=== PATIENT | female | born 1970 | race Caucasian/White ===

== ENCOUNTER → 2016-05-29 | Outpatient (CLI) | payer OTHER | END | disposition home or self-care (01) | DX: Z53.9 Procedure and treatment not carried out, unspecified reason (principal) ==

== ENCOUNTER → 2017-04-09 | Outpatient (CLI) | payer OTHER ==
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
== END | disposition home or self-care (01) ==
LOC: RADMRIMAIN 08:21
PROVIDERS: ATTEND Orthopaedic Surgery
DX: S83.242A Other tear of medial meniscus, current injury, left knee, initial encounter (principal); M25.862 Other specified joint disorders, left knee; M94.8X6 Other specified disorders of cartilage, lower leg

== ENCOUNTER → 2017-05-24 | Outpatient (CLI) | payer OTHER | END | disposition home or self-care (01) | LOC: LABWHC1 15:37 | PROVIDERS: ATTEND Internal Medicine Interventional Cardiology | DX: E05.90 Thyrotoxicosis, unspecified without thyrotoxic crisis or storm (principal) | CPT/HCPCS: 36415; 84443 ==

== ENCOUNTER → 2017-07-04 | Outpatient (CLI) | payer OTHER ==
[2017-07-04 13:12] LABS: Basophils # (A) 0.1 k/uL (0-0.2); Basophils % (A) 1 %; Eosinophils # (A) 0.2 k/uL (0-0.7); Eosinophils % (A) 2 %; HCT 35.9 % (34.0-46.0); HGB 12.2 gm/dL (11.4-16.0); Lymphocytes # (A) 2.7 k/uL (1.0-4.8); Lymphocytes % (A) 26 %; MCH 27.9 pg (25.0-35.0); MCHC 34.1 g/dL (31.0-37.0); MCV 81.9 fL (80.0-100.0); Mean Platelet Volume 6.7; Monocytes # (A) 0.5 k/uL (0-1.0); Monocytes % (A) 5 %; Neutrophils # (A) 6.5 k/uL (1.3-7.7); Neutrophils % (A) 63 %; Platelet Count 368 k/uL (150-450); RBC 4.38 m/uL (3.80-5.40); RDW 12.6 % (11.5-15.5); WBC 10.3 k/uL (3.8-10.6)
[2017-07-04 13:23] LABS: Potassium 4.9 mmol/L (3.5-5.1)
== END | disposition home or self-care (01) ==
LOC: LABPAT 12:35
PROVIDERS: ATTEND Orthopaedic Surgery
DX: Z01.812 Encounter for preprocedural laboratory examination (principal); M23.92 Unspecified internal derangement of left knee
CPT/HCPCS: 36415; 80051; 85025

== ENCOUNTER → 2017-07-23 | Outpatient (CLI) | payer OTHER ==
--- NOTE | 2017-07-23 11:59 | MR ---
EXAMINATION TYPE: MR lumbar spine wo con DATE OF EXAM: 07/23/2017 COMPARISON: Outside MRI lumbar spine September 05, 2015. HISTORY: Low back pain per order. Pain into bilateral lower extremities per patient. TECHNIQUE: Multiplanar, multisequence imaging of the lumbar spine is performed without IV contrast. FINDINGS: Sagittal images of the lumbar spine show vertebral body heights and alignment to appear sat isfactory. Small Schmorl node superior L3 endplate is redemonstrated. Multilevel disc desiccation is redemonstrated. Disc space heights are maintained. Posterior disc herniation L4-L5 level is again se en. There is increased signal posteriorly consistent with annular tear redemonstrated. The conus medu llaris is remains slightly high in position ending at mid T12 level. No abnormal signal is present. N o suspicious clumping of lumbosacral nerve roots is seen. The bone marrow signal intensity is within normal limits. Axial images show the T12-L1, L1-L2, L2-L3, and L3-L4 levels all to appear within normal limits. Axial images at L4-L5 level show mild facet degenerative changes bilaterally with small central disc protrusion but spinal canal is preserved and bilateral neural foramina are patent. Axial images at L5-S1 level show mild facet degenerative changes otherwise are felt unremarkable. No suspicious retroperitoneal findings are present. IMPRESSION: Stable degenerative changes most prominent L4-L5 level as detailed above.
== END | disposition home or self-care (01) ==
LOC: RADMRIMAIN 09:28
PROVIDERS: ATTEND Psychiatry & Neurology Neurology
DX: M47.817 Spondylosis without myelopathy or radiculopathy, lumbosacral region (principal)
CPT/HCPCS: 72148

== ENCOUNTER → 2017-12-17 | Outpatient (CLI) | payer OTHER ==
[2017-12-17 13:05] LABS: Anion Gap 11 mmol/L; Blood Urea Nitrogen 15 mg/dL (7-17); Carbon Dioxide 22 mmol/L (22-30); Chloride 107 mmol/L (98-107); HCT 37.9 % (34.0-46.0); HGB 12.5 gm/dL (11.4-16.0); MCH 27.8 pg (25.0-35.0); MCV 84.2 fL (80.0-100.0); Mean Platelet Volume 6.3; Platelet Count 288 k/uL (150-450); Potassium 5.1 mmol/L (3.5-5.1); RDW 13.6 % (11.5-15.5); Sodium 140 mmol/L (137-145); WBC 9.5 k/uL (3.8-10.6)
== END | disposition home or self-care (01) ==
LOC: LABPAT 12:15
PROVIDERS: ATTEND Internal Medicine Interventional Cardiology
DX: Z01.812 Encounter for preprocedural laboratory examination (principal); E78.1 Pure hyperglyceridemia; R07.9 Chest pain, unspecified
CPT/HCPCS: 36415; 80051; 82565; 84520; 85027

== ENCOUNTER → 2018-03-24 | Outpatient (CLI) | payer OTHER | END | disposition home or self-care (01) | LOC: LABWHC1 07:04 | PROVIDERS: ATTEND Psychiatry & Neurology Neurology | DX: Z51.81 Encounter for therapeutic drug level monitoring (principal) | CPT/HCPCS: 36415; 82565; 84520 ==

== ENCOUNTER → 2018-07-11 | Outpatient (CLI) | payer OTHER | END | disposition home or self-care (01) | LOC: LABWHC1 09:45 | PROVIDERS: ATTEND Internal Medicine Interventional Cardiology | DX: E78.2 Mixed hyperlipidemia (principal) | CPT/HCPCS: 36415; 80061; 84450; 84460 ==

== ENCOUNTER 2018-08-27 06:19 | Day surgery (SDC) | payer OTHER ==
[2018-08-25 10:51] VITALS: BMI 28.7
--- NOTE | 2018-08-26 13:34 | HP ---
HISTORY AND PHYSICAL Surgery is 08/27/2018. Marcy Alcaraz is a 48-year-old patient seen with progressive right shoulder pain. Treatment options were discussed with her. She elected to proceed with arthroscopy. Consent regarding procedure was obtained. PAST MEDICAL HISTORY: Her past medical history is cga-sryzcem-rxvyrynwn diabetes, hypertension, hyperlipidemia, gastroesophageal reflux disease. PAST SURGICAL HISTORY: Carpal tunnel surgery, knee arthroscopy. DAILY MEDICATIONS: 1. Atorvastatin. 2. Buspirone. 3. . 4. Glipizide. 5. Januvia. 6. Lisinopril. 7. Metformin. 8. Omeprazole. ALLERGIES: None. SOCIAL HISTORY: She denies current tobacco use. PHYSICAL EXAMINATION: Physical evaluation of the right shoulder: Flexion 170 degrees, abduction 170 degrees, external rotation 70 degrees with weakness and pain. There is tenderness along the anterolateral acromion and rotator cuff insertion site. Impingement sign is positive at 90 degrees. Her distal neurovascular exam is intact. Radiographs of the right shoulder revealed acromioclavicular joint osteoarthritis. An MRI of the right shoulder revealed rotator cuff tear, acromioclavicular joint osteoarthritis and partial long head biceps tendon tear. IMPRESSION: 1. Right shoulder impingement with rotator cuff tear. 2. Right shoulder partial long head biceps tendon tear. 3. Right shoulder acromioclavicular joint osteoarthritis. PLAN: Right shoulder arthroscopy, subacromial decompression, possible arthroscopic rotator cuff repair, possible Dolores procedure and debridement. MMODL / IJN: [id number] /
[2018-08-27] MEDS ORDERED: SCOPOLAMINE 1.5MG/72HR PATCH TRANSDERM ONE (06:35)
[2018-08-27] MEDS ORDERED: DEXAMETHASONE SOD PHOSPHATE 10 MG/ML 1 ML VIAL IV ONE (06:35)
[2018-08-27] MEDS ORDERED: MIDAZOLAM 2 MG/2 ML VIAL IV PRN (06:35)
[2018-08-27] MEDS ORDERED: LACTATED RINGERS 1,000 ML IV SCH (06:35)
[2018-08-27] MEDS ORDERED: ONDANSETRON 4 MG/2 ML VIAL IVP ONE (06:35)
[2018-08-27] MEDS ORDERED: HYDROmorphone 0.5 MG/0.5 ML SYRINGE IVP PRN (06:35)
[2018-08-27] MEDS ORDERED: LIDOCAINE 1% 20 ML VIAL (10MG/ML) FOR IV START INTRADERMA ONE (07:00)
[2018-08-27 07:21] LABS: Glucose,Whole Blood 136 mg/dL (75-99)
[2018-08-27] MEDS ORDERED: METOCLOPRAMIDE 5 MG/ML 2 ML VIAL IVP ONE (07:40)
[2018-08-27] MEDS ORDERED: FAMOTIDINE 20 MG/2 ML VIAL IV ONE (07:40)
[2018-08-27] MEDS ORDERED: fentaNYL (PF) 50 MCG/ML 2 ML AMP ONE (07:55)
[2018-08-27] MEDS ORDERED: PHENYLEPHRINE-0.9% NACL SYG 1 MG/10 ML SYRINGE ONE (07:55)
[2018-08-27] MEDS ORDERED: ROPIVACAINE 5 MG/ML 30 ML VIAL ONE (07:55)
[2018-08-27] MEDS ORDERED: PROPOFOL 10 MG/ML 20 ML VIAL IV ONE (07:55)
[2018-08-27] MEDS ORDERED: LIDOCAINE 1% INJ 10MG/ML (20 ML MDV) ONE (07:55)
[2018-08-27] MEDS ORDERED: MIDAZOLAM 2 MG/2 ML VIAL ONE (07:55)
[2018-08-27] MEDS ORDERED: SUCCINYLCHOLINE CHLORIDE 100 MG/5 ML SYR IV ONE (07:55)
[2018-08-27] MEDS ORDERED: LACTATED RINGERS 1,000 ML IV ONE ×2 (08:53)
[2018-08-27 09:29] VITALS: TEMP 97.6
--- NOTE | 2018-08-27 09:32 | P.OP ---
Date of Procedure: 08/27/18 Preoperative Diagnosis: Right shoulder impingement Postoperative Diagnosis: 1. Right shoulder rotator cuff tear 2. Right shoulder impingement 3. Right shoulder partial long head biceps tendon tear 4. Right shoulder superficial labral tear Procedure(s) Performed: 1. Right shoulder arthroscopic rotator cuff repair 2. Right shoulder arthroscopic subacromial decompression 3. Right shoulder arthroscopic biceps tenotomy 4. Right shoulder arthroscopic debridement labral tear Implants: 14.75 Arthrex swivel lock anchor Anesthesia: GETA, regional (Interscalene block) Surgeon: Steve Vernon Habilitation Specialist #1: Jaspal Winchester Estimated Blood Loss (ml): 5 Pathology: none sent Condition: stable Disposition: PACU Indications for Procedure: 48-year-old patient seen with progressive right shoulder pain. After treatment options were discussed, she elected to proceed with arthroscopy. Operative Findings: See description of procedure Description of Procedure: Patient underwent an interscalene block by department of anesthesia for postoperative pain management. The patient was then taken to the operative suite. The patient underwent a general anesthetic by the department of anesthesia. The patient was placed into a lateral position and secured. There was appropriate padding of the bony prominence. Right shoulder was then prepped and draped in normal sterile orthopedic fashion. We placed the extremity in 10 pounds of longitudinal traction. A posterior incision was now made for a posterior working portal site. The trocar and cannula were inserted into the glenohumeral joint. Arthroscopy was initiated. Spinal needle was now inserted anteriorly, to ascertain the anterior working portal site. An incision was now made in that area, a trocar was inserted followed by a probe. There was partial tearing long head biceps tendon. There were grade 2/3 chondral malacia changes at the inferior aspect of the glenoid. There was some superficial tearing of the superior labrum. I performed an arthroscopic biceps tenotomy. I debrided the superficial labral tears getting down to stable tissue. The residual labrum was stable. Instruments now removed from the glenohumeral joint. Utilizing the posterior working portal site, the trocar and cannula were inserted into the subacromial space. Arthroscopy initiated. I made an incision 2 fingerbreadths lateral to the acromion. I introduced my trocar followed by my ArthroCare ablator. I now began ablating thick subacromial bursal tissue, which exposed the undersurface of the anterior acromion. There was diminished subacromial space. There was a very prominent anterior acromion. A motorized bur was introduced and a subacromial decompression was performed. I also excised some osteophytes off the inferior aspect of the distal clavicle. The AC joint was visualized and noted to be mildly arthritic. I turned my attention to the rotator cuff. There was full-thickness perforation noted along the distal supraspinatus area. I debrided the margins getting down to stable tendon tissue. The tear/defect measured approximately 11.5 cm. It was freely mobile over the footprint. I abraded the footprint with a motorized bur. With the assistance of Jorge Alberto MCGINNIS passed 2 everted mattress sutures through good bites of rotator cuff tendon. We now punched out hole for anchor insertion. While I introduced the anchors into our pre-partial Jorge Alberto MCGINNIS the sutures appropriate. We now introduced anchor compressing the tendon along the footprint. Residual suture limbs were clipped. We had good compression of the tendon along the entire footprint. I injected 1 mL Renue intra-articular. Instruments now removed from the portal sites. All portal sites were approximated with nylon suture. Sterile dressings were applied followed by a shoulder sling. Jaspal MCGINNIS assisted in this complex case. The patient was awakened, transferred to a bed, and taken to recovery in stable condition.
[2018-08-27 10:24] VITALS: RESP 18
[2018-08-27 10:49] VITALS: BP 108/72; PULSE 84
--- NOTE | 2018-08-27 14:46 | P.ONQ ---
Anesthesiology Proc Note - PNB - Peripheral Nerve Block Performed Right Interscalene Single Time Out Performed: Yes (0735) Procedure Start Time: 07:35 Procedure Stop Time: :45 Indication: Acute Post-Operative Pain, Dx/Pain Location (Right Shoulder Pain), Requested by physician Sedation Type: Sedate with meaningful contact maintained Preparation: Sterile Prep Position: Supine Catheter: None Needle Types: ToPorous Powery Needle Size: 50mm (2") Needle Gauge: 21 Technique: Ultrasound Injectate: 0.5% Ropivacaine (see comment for volume) (20ml) Blood Aspirated: No Pain Paresthesia on Injection Noted: No Resistance on Injection: Normal Events: Uneventful and Well Tolerated
== END 2018-08-27 10:55 | disposition home or self-care (01) ==
LOC: OR 06:19
PROVIDERS: ATTEND Orthopaedic Surgery
DX: M75.101 Unspecified rotator cuff tear or rupture of right shoulder, not specified as traumatic (principal); M75.41 Impingement syndrome of right shoulder; S46.111A Strain of muscle, fascia and tendon of long head of biceps, right arm, initial encounter; S43.431A Superior glenoid labrum lesion of right shoulder, initial encounter; X58.XXXA Exposure to other specified factors, initial encounter; M25.711 Osteophyte, right shoulder; E11.9 Type 2 diabetes mellitus without complications; I10 Essential (primary) hypertension; E78.5 Hyperlipidemia, unspecified; K21.9 Gastro-esophageal reflux disease without esophagitis; E55.9 Vitamin D deficiency, unspecified; F41.9 Anxiety disorder, unspecified; F32.9 Major depressive disorder, single episode, unspecified; Z87.891 Personal history of nicotine dependence; Z87.442 Personal history of urinary calculi; G89.4 Chronic pain syndrome; Z83.3 Family history of diabetes mellitus; Z82.3 Family history of stroke; M17.10 Unilateral primary osteoarthritis, unspecified knee; Z79.84 Long term (current) use of oral hypoglycemic drugs; Z79.899 Other long term (current) drug therapy; Z79.82 Long term (current) use of aspirin; Z79.891 Long term (current) use of opiate analgesic; Z91.048 Other nonmedicinal substance allergy status
CPT/HCPCS: 64415; 81025; 29826; 29827; C1713 ×3; C1765; J2250; J1100; J2765; J2405; J0690; J2001; J3010; J2795; J2370; J0330; J2704

== ENCOUNTER → 2019-06-24 | Outpatient (CLI) | payer OTHER ==
--- NOTE | 2019-06-25 07:38 | US ---
EXAMINATION TYPE: US transvaginal DATE OF EXAM: 06/24/2019 COMPARISON: NONE CLINICAL HISTORY: N80.9 Endometriosis. Hx Endometriosis. IUD x 5 years. TECHNIQUE: Transvaginal (TV). Date of LMP: 06/12/2019, EXAM MEASUREMENTS: Uterus: 8.0 x 4.6 x 4.0 cm Endometrial Stripe: 0.4 cm Right Ovary: 1.5 x 1.3 x 0.9 cm Left Ovary: 2.2 x 1.4 x 1.2 cm 1. Uterus: Anteverted Heterogenous. Scattered hypoechoic myometrial lesions are seen. The largest on the right measures 1.5 x 1.5 x 1.3 and the largest on the left measures 0.8 x 1.0 x 0.8 cm. 2. Endometrium: Central IUD visualized. Oval hypoechoic 6 mm avascular area in the endometrium toward s the uterine fundus such as on image 9/56 demonstrates marked increased through transmission and the refore is likely fluid. No vascular stalk is seen leading to this abnormality. 3. Right Ovary: wnl 4. Left Ovary: wnl 5. Bilateral Adnexa: wnl 6. Posterior cul-de-sac: no free fluid Cervix- Fluid seen at external os. Multiple nabothian cysts. Probable complex nabothian cyst with int ernal echoes = 0.9 x 0.9 x 0.5 cm IMPRESSION: 1. Heterogenous myometrium with multiple myometrial lesions, likely leiomyomas measuring up to 1.5 cm . 2. Oval avascular area in the endometrium towards the uterine fundus that is favored to represent a s mall amount of fluid however short-term follow-up versus direct visualization could also be considere d to exclude polyp. 3. Centrally placed intrauterine device. 4. Complex probable nabothian cysts within the cervix measuring up to 0.9 cm.
== END | disposition home or self-care (01) ==
LOC: RADUSWWP 16:01
PROVIDERS: ATTEND Obstetrics & Gynecology
DX: N85.9 Noninflammatory disorder of uterus, unspecified (principal); Z97.5 Presence of (intrauterine) contraceptive device
CPT/HCPCS: 76830

== ENCOUNTER → 2019-12-30 | Outpatient (CLI) | payer OTHER ==
[2019-12-30 21:44] LABS: Total Protein,CSF 34 mg/dL (12-60)
[2019-12-30 22:31] LABS: Appearance,CSF Clear; CSF Tube Number 4; Nucleated Cells, CSF 0 u/L (0-5); Red Blood Cell,CSF 0 u/L (0-10)
== END | disposition home or self-care (01) ==
LOC: LABWHC1 07:47
PROVIDERS: ATTEND Physician Assistant
DX: R90.82 White matter disease, unspecified (principal)
CPT/HCPCS: 36415; 82040; 82042; 82784; 83873; 83916; 84157; 87801; 89050

== ENCOUNTER → 2020-11-29 | Outpatient (CLI) | payer MEDICARE, OTHER ==
--- NOTE | 2020-11-29 14:26 | CT ---
EXAMINATION TYPE: CT brain wo con DATE OF EXAM: 11/29/2020 COMPARISON: Dizziness HISTORY: Falling, dizziness CT DLP: 1171 mGycm Automated exposure control for dose reduction was used. FINDINGS: Mild generalized degenerative change. Low-attenuation the white matter is nonspecific but most typica l remote microvascular ischemia. Calvarium intact. Sinuses and mastoid air cells are clear. Orbits are submitted. Craniocervical junction maintained. Se lla turcica has normal appearance. IMPRESSION: MILD DEGENERATIVE CHANGE WITH NO ACUTE HEMORRHAGE OR MASS EFFECT. CORRELATE WITH MRI CLINICALLY WA RRANTED.
== END | disposition home or self-care (01) ==
LOC: RADCTMAIN 13:11
PROVIDERS: ATTEND Physician Assistant
DX: G31.9 Degenerative disease of nervous system, unspecified (principal); W19.XXXA Unspecified fall, initial encounter
CPT/HCPCS: 70450

== ENCOUNTER 2023-08-21 12:00 | Day surgery (SDC) | payer MEDICARE, OTHER ==
[2023-08-16 14:01] VITALS: BMI 23.0
--- NOTE | 2023-08-20 08:43 | P.HPOR ---
History of Present Illness H&P Date: 08/20/23 Subjective: This is a 53 year old female that presents today for initial evaluation regarding a several year history of progressively worsening left base of the thumb pain and associated numbness and tingling in the thumb, index and middle finger. Over the last several years she has had over 4 thumb CMC steroid injections performed by [facility]. She notes only temporary improvement of her symptoms which returns several months after the injection. She also has a history of a left carpal tunnel release performed early 1999. She got temporary relief from her numbness and tingling but is now returned and she has noticed daily worsening of her numbness and tingling in the thumb, index and middle finger. Physical Examination: LUE: AIN/PIN/Radial/Ulnar/Median motor intact. Radial/Ulnar/Median SILT. 2+/4 Radial/Ulnar pulses palpated. 5/5 APB, 5/5 FDI. Negative Finkelsteins, positive CMC grind, positive Durkan's compression. Previous carpal tunnel surgery scar present. Imaging: X-Rays of the left hand 3V taken in office today demonstrate moderate/severe thumb CMC arthritis. Impression: 1.) Left thumb CMC arthritis 2.) Left recurrent carpal tunnel syndrome Plan: Diagnosis and treatment options were discussed with the patient. She has failed conservative treatment for her left thumb CMC arthritis and has signs of recurrent carpal tunnel syndrome. She elects to go forward with a left thumb CMC joint arthroplasty and a left revision open carpal tunnel release. Risks and benefits of surgery including bleeding, infection, damage to surrounding tissue, need for further surgery, residual numbness were discussed and the patient wished to go forward with surgery. The patient was agreeable with this plan. CC: Dr. Carlos Alberto Ho DO Orthopedic Hand/Upper Extremity Surgeon Past Medical History Past Medical History: Chest Pain / Angina, Diabetes Mellitus, GERD/Reflux, Hyp erlipidemia, Hypertension, Myocardial Infarction ([place]), Osteoarthritis (OA), Syncope Additional Past Medical History / Comment(s): "I'v been cleared from diabetes now."" My AIc is 4.9 now." "I passed out from medications" "That's what my heart doctor said." Migraines. Last Myocardial Infarction Date:: 04/2018 History of Any Multi-Drug Resistant Organisms: MRSA Date of last positivie culture/infection: 2013 MDRO Source:: FOREHEAD, BILAT ARMS AND LEGS FROM SPIDER BITES Past Surgical History: Heart Catheterization, Hernia Repair, Orthopedic Surgery, Tubal Ligation Additional Past Surgical History / Comment(s): LT KNEE SCOPE, BILAT CTR, COLONOSCOPY, rt shoulder repair and rt arm. Cardiac cath with [place] 2019. Past Anesthesia/Blood Transfusion Reactions: No Reported Reaction, Motion Sickness Additional Past Anesthesia/Blood Transfusion Reaction / Comment(s): No hx of blood transfusion. Smoking Status: Former smoker - Past Family History Mother Family Medical History: Deep Vein Thrombosis (DVT) Sister(s) Family Medical History: Cancer Medications and Allergies Home Medications Medication Instructions Recorded Confirmed Type Atorvastatin [Lipitor] 40 mg PO HS 07/18/17 08/16/23 History Butalb/APAP/Caff 50-325-40Mg 1 each PO Q6H PRN 07/18/17 08/16/23 History [Fioricet 50-325-40] Cholecalciferol [Vitamin D3] 1,000 unit PO BID 07/18/17 08/16/23 History Fluticasone Nasal [place] [Flonase 2 spr EA NOSTRIL DAILY PRN 07/18/17 08/16/23 History Nasal [place]] HYDROcodone/APAP 7.5-325MG [[place] 1 tab PO TID 07/18/17 08/16/23 History 7.5-325] Levomilnacipran HCl [Fetzima] 80 mg PO QAM 07/18/17 08/16/23 History Omeprazole 20 mg PO DAILY PRN 07/18/17 08/16/23 History busPIRone HCL 15 mg PO BID 07/18/17 08/16/23 History Cinnamon Bark [Cinnamon] 500 mg PO HS 08/25/18 08/16/23 History Metoprolol Tartrate [Lopressor] 50 mg PO BID 08/25/18 08/16/23 History Aspirin EC [Ecotrin Low Dose] 81 mg PO HS 08/16/23 08/16/23 History Atogepant [Qulipta] 60 mg PO QAM 08/16/23 08/16/23 History Brexpiprazole [Rexulti] 1 mg PO HS 08/16/23 08/16/23 History Famotidine [Pepcid] 40 mg PO HS 08/16/23 08/16/23 History Fish Oil (Unknown Dose) 1 dose PO QAM 08/16/23 08/16/23 History Fremanezumab-Vfrm [Ajovy 1 dose SQ Q30D 08/16/23 08/16/23 History Autoinjector] Multivitamins, Thera [Multivitamin 1 tab PO QAM 08/16/23 08/16/23 History (formulary)] Pregabalin [Lyrica] 50 mg PO TID 08/16/23 08/16/23 History Tirzepatide [Mounjaro] 2.5 mg SQ WEEKLY 08/16/23 08/16/23 History Allergies Allergy/AdvReac Type Severity Reaction Status Date / Time "Antibiotic" Allergy "unknown" Uncoded 08/16/23 13:38 Physical Examination Osteopathic Statement: *. No significant issues noted on an osteopathic str uctural exam other than those noted in the History and Physical/Consult.
[~2023-08-21 12:00] MED LIST: HYDROmorphone 0.5 MG/0.5 ML SYRINGE IVP PRN
[2023-08-21] MEDS: LACTATED RINGERS 1,000 ML IV SCH (12:45)
[2023-08-21 12:56] VITALS: TEMP 98.3
[2023-08-21] MEDS: ONDANSETRON 4 MG/2 ML VIAL IVP ONE (13:15)
[2023-08-21] MEDS: DEXAMETHASONE SOD PHOSPHATE 4 MG/ML 1 ML VIAL IV ONE (13:15)
[2023-08-21 13:19] LABS: Glucose,Whole Blood 82 mg/dL (70-110)
[2023-08-21] MEDS: MIDAZOLAM 2 MG/2 ML VIAL IVP ONE (13:20)
[2023-08-21] MEDS ORDERED: fentaNYL (PF) 50 MCG/ML 2 ML AMP ONE (13:28)
[2023-08-21] MEDS ORDERED: PROPOFOL 10 MG/ML 20 ML VIAL IV ONE (13:28)
[2023-08-21] MEDS ORDERED: DEXAMETHASONE SOD PHOSPHATE 4 MG/ML 1 ML VIAL ONE (13:28)
[2023-08-21] MEDS ORDERED: ROPIVACAINE 5 MG/ML 30 ML VIAL ONE (13:28)
[2023-08-21] MEDS ORDERED: MIDAZOLAM 2 MG/2 ML VIAL ONE (13:28)
--- NOTE | 2023-08-21 13:38 | P.ANPRN ---
Procedure Note - Anesthesia - Nerve Block Performed Left Supraclavicular Single Time Out Performed: Yes Date of Procedure: 08/21/23 Procedure Start Time: 13:20 Procedure Stop Time: :25 Location of Patient: PreOp Indication: Acute Post-Operative Pain, Requested by Surgeon Sedation Type: Sedate with meaningful contact maintained Preparation: Sterile Prep Position: Supine Needle Types: Pajunk Needle Gauge: 21 Ultrasound used to visualize needle placement: Yes Ultrasound used to observe medication spread: Yes Blood Aspirated: No Pain Paresthesia on Injection Noted: No Resistance on Injection: Normal Image Stored and Saved: Yes Events: Uneventful and Well Tolerated (Ropivacaine 0.5% 20 cc plus dexamethasone 4 mg)
--- NOTE | 2023-08-21 14:33 | P.OP ---
Date of Procedure: 08/21/23 Preoperative Diagnosis: 1.) Left thumb CMC arthritis 2.) Left recurrent carpal tunnel syndrome Postoperative Diagnosis: 1.) Left thumb CMC arthritis 2.) Left recurrent carpal tunnel syndrome Procedure(s) Performed: 1.) Left thumb CMC basilar joint arthroplasty 2.) Left revision open carpal tunnel release Implants: Arthrex 3.5mm Swivel Lock Suture anchor x2 Anesthesia: regional Surgeon: Aleksey Ho Ticket Machine Operator #1: Pasquale Walsh Estimated Blood Loss (ml): 0 Pathology: none sent Condition: stable Description of Procedure: This is a 53 year old female who presents today for a left thumb CMC basal joint arthroplasty after having failed conservative treatment for severe thumb CMC arthritis and left revision open carpal tunnel release for recurrent carpal tunnel syndrome. Risks and benefits of surgery were discussed with the patient including bleeding, damage to surrounding tissue, infection, need for further surgery as well as risks of anesthesia including pulmonary embolism and even and the patient wished to proceed with surgical intervention. The patients was seen in the pre-operative area by myself. Consent and H&P were completed and updated. The correct extremity was marked in the pre-operative area by myself and all other questions were answered. Patient received a upper extremity nerve block by the department of anesthesia. He then was brought to the operating room by the department of anesthesia. They remained on the portable stretcher and a rolling hand table was brought to the side of the operative extremity. The patient was then drifted off to sleep by the department of anesthesia. A nonsterile tourniquet was then applied to the operative extremity and the left upper extremity was then prepped and draped in normal sterile fashion. Pre-operative time out was performed indicating the correct patient, procedure and laterality. All in the room agreed. Pre-operative antibiotics were given prior to skin incision. The operative extremity was the exsanguinated with an esmarch bandage and the tourniquet was inflated to 250mmHg. 15 blade scalpel was utilized to make a longitudinal incision on the palmar skin in line with the radial boarder of the ring finger to a point distally at the intersection of Kaplans cardinal line over the area of the previous incision. Heiss retractor was utilized to spread subcutaneous tissue and scalpel was used to cut through the superficial palmar fascia to reveal the transverse carpal ligament. The transverse carpal ligament was then sharply incised in line with the incision and tenotomy scissors were used to spread distally and the distal portion of the transverse carpal ligament was released using tenotomy scissors from distal to proximal under direct visualization. The median nerve was directly visualized and was intact. Proximal fascia of the distal forearm was also released under direct visualization taking care to preserve the palmar cutaneous branch of the median nerve. The wound was then closed with 4-0 nylon suture in a horizontal mattress fashion. Longitudinal incision was made over the left thumb CMC joint with a 15 blade scalpel. Blunt dissection was taken down to subcutaneous tissues with littler scissors taking care to preserve the branches of the superficial radial nerve. Dorsal radial artery was identified proximally in the incision and protected throughout the procedure. Scalpel was then made to incise the thumb CMC joint creating full thickness flaps off of the proximal metacarpal base and trapezium, this plane was further developed with a periosteal elevator. Elevator was then utilized to identify the thumb CMC joint and scaphotrapezial joint. McGlamory elevator was then used to excise the trapezium whole. Guidewire was then introduced down to the laser line at the base of the first metacarpal through the same incision and was over drilled. Another guidewire was then inserted at the radial base of the first metacarpal near the Insertion of APL and was then over drilled with normal drill guide. A 3.5mm Arthrex SwiveLock anchor was then inserted into the base of the first metacarpal. While holding the thumb in slight traction and full adduction, another 3.5mm Arthrex SwiveLock anchor was inserted into the base of the second metacarpal and the two strands of fibertape were centered across the first metacarpal base to create a sling around the base suspending the thumb metacarpal, good shannan purchase was appreciated. The thumb was successfully suspended and full ROM was achieved passively. Suture ends were cut and skin was closed with several interrupted 4-0 Monocryl sutures followed by a running 4-0 Monocryl stitch. Sterile dressing consisting of mastisol and steri strips followed by 4x4s cast padding, and a thumb spica plaster splint was applied. Tourniquet was let down and the hand had brisk cap refill and normal perfusion immediately. The patient was then woken by the department of anesthesia and transferred to PACU in stable condition. Pasquale MCGINNIS was present for the case and assisted in major portions of procedure and protection of vital neurovascular structures. Aleksey Ho D.O. Orthopedic Hand/Upper Extremity Surgeon
[2023-08-21 15:15] VITALS: BP 117/77; PULSE 72; RESP 16
== END 2023-08-21 15:10 | disposition home or self-care (01) ==
LOC: OR 12:00
PROVIDERS: ATTEND Orthopaedic Surgery Hand Surgery
DX: M18.12 Unilateral primary osteoarthritis of first carpometacarpal joint, left hand (principal); G56.02 Carpal tunnel syndrome, left upper limb; G89.18 Other acute postprocedural pain; I10 Essential (primary) hypertension; E78.5 Hyperlipidemia, unspecified; K21.9 Gastro-esophageal reflux disease without esophagitis; I25.2 Old myocardial infarction; Z98.51 Tubal ligation status; Z95.5 Presence of coronary angioplasty implant and graft; Z79.899 Other long term (current) drug therapy; Z87.891 Personal history of nicotine dependence; Z82.49 Family history of ischemic heart disease and other diseases of the circulatory system; Z79.82 Long term (current) use of aspirin
CPT/HCPCS: 64415; 25447; 64721; C1713; J2250; J1100; J2405; J0690; J3010; J2795; J2704

== ENCOUNTER 2024-03-01 11:16 | Emergency (ER) | payer MEDICARE, OTHER ==
[2024-03-01 11:32] VITALS: TEMP 98
[2024-03-01 12:25] LABS: Basophils # (A) 0.1 k/uL (0-0.2); Basophils % (A) 1 %; Eosinophils % (A) 0 %; HCT 43.2 % (34.0-46.0); HGB 14.6 gm/dL (11.4-16.0); Lymphocytes # (A) 1.8 k/uL (1.0-4.8); Lymphocytes % (A) 18 %; MCH 28.6 pg (25.0-35.0); MCHC 33.7 g/dL (31.0-37.0); MCV 84.9 fL (80.0-100.0); Mean Platelet Volume 7.2; Monocytes # (A) 0.3 k/uL (0-1.0); Monocytes % (A) 3 %; Neutrophils % (A) 77 %; Platelet Count 305 k/uL (150-450); RBC 5.09 m/uL (3.80-5.40); RDW 11.8 % (11.5-15.5); WBC 10.3 k/uL (3.8-10.6)
[2024-03-01] MEDS: SODIUM CHLORIDE 0.9% 1,000 ML IV STA (12:28)
[2024-03-01] MEDS: ONDANSETRON 4 MG/2 ML VIAL IVP STA (12:28)
[2024-03-01] MEDS: KETOROLAC 15 MG/ML 1 ML VIAL IVP STA (12:29)
[2024-03-01 12:31] LABS: Appearance,Urine Clear (Clear); Bilirubin,Urine Negative (Negative); Blood,Urine Negative (Negative); Color,Urine Yellow; Glucose,Urine (UA) Negative (Negative); Ketones,Urine 4+ (Negative); Leukocyte Esterase,Urine Trace (Negative); Mucus,Urine Occasional /hpf; Nitrite,Urine Negative (Negative); PH, Urine 5.5 (5.0-8.0); Protein,Urine Trace (Negative); RBC,Urine 1 /hpf (0-5); Specific Gravity,Urine 1.028 (1.001-1.035); Squamous Epithelial Cell,Urine 1 /hpf (0-4); WBC,Urine 6 /hpf (0-5)
[2024-03-01 12:39] LABS: ALT 18 U/L (4-34); AST 24 U/L (14-36); African American GFR (CKD) 77 (>60 ml/min/1.73 sqM); Albumin 5.2 g/dL (3.5-5.0); Alkaline Phosphatase 79 U/L (38-126); Amylase 102 U/L (30-110); Anion Gap 19 mmol/L; Blood Urea Nitrogen 27 mg/dL (7-17); Calcium 10.3 mg/dL (8.4-10.2); Carbon Dioxide 20 mmol/L (22-30); Chloride 104 mmol/L (98-107); Glucose 119 mg/dL (74-99); Lipase 199 U/L (23-300); Non-African American GFR(CKD) 67 (>60 ml/min/1.73 sqM); Potassium 4.2 mmol/L (3.5-5.1); Sodium 143 mmol/L (137-145); Total Bilirubin 0.7 mg/dL (0.2-1.3); Total Protein 8.4 g/dL (6.3-8.2)
[2024-03-01] MEDS: SODIUM CHLORIDE 0.9% 1,000 ML IV ONE (13:15)
--- NOTE | 2024-03-01 13:49 | ED ---
General Adult HPI - General Chief complaint: Nausea/Vomiting/Diarrhea Stated complaint: Vomiting, lack of sleep Time Seen by Provider: 03/01/24 11:33 Source: patient, RN notes reviewed Mode of arrival: ambulatory Limitations: no limitations - History of Present Illness Initial comments: 53-year-old female presents emergency department for evaluation of nausea and vomiting. Patient states that this started 2 to 3 days ago. She states that since that started she is been unable to tolerate taking her medications. She admits to some low back pain but denies any abdominal pain. She denies fever, chills. Denies any changes in bowel habits. Denies urinary symptoms. - Related Data Home Medications Medication Instructions Recorded Confirmed Atorvastatin [Lipitor] 40 mg PO HS 07/18/17 08/21/23 Butalb/APAP/Caff 50-325-40Mg 1 each PO Q6H PRN 07/18/17 08/21/23 [Fioricet 50-325-40] Cholecalciferol [Vitamin D3] 1,000 unit PO BID 07/18/17 08/21/23 Fluticasone Nasal [place] [Flonase 2 spr EA NOSTRIL DAILY PRN 07/18/17 08/21/23 Nasal [place]] HYDROcodone/APAP 7.5-325MG [[place] 1 tab PO TID 07/18/17 08/21/23 7.5-325] Levomilnacipran HCl [Fetzima] 80 mg PO QA 07/18/17 08/21/23 Omeprazole 20 mg PO DAILY PRN 07/18/17 08/21/23 busPIRone HCL 15 mg PO BID 07/18/17 08/21/23 Cinnamon Bark [Cinnamon] 500 mg PO HS 08/25/18 08/21/23 Metoprolol Tartrate [Lopressor] 50 mg PO BID 08/25/18 08/21/23 Aspirin EC [Ecotrin Low Dose] 81 mg PO 08/16/23 08/21/23 Atogepant [Qulipta] 60 mg PO QA 08/16/23 08/21/23 Brexpiprazole [Rexulti] 1 mg PO HS 08/16/23 08/21/23 Famotidine [Pepcid] 40 mg PO HS 08/16/23 08/21/23 Fish Oil (Unknown Dose) 1 dose PO QA 08/16/23 08/21/23 Fremanezumab-Vfrm [[place] 1 dose SQ Q30D 08/16/23 08/21/23 Autoinjector] Multivitamins, Thera [Multivitamin 1 tab PO QAM 08/16/23 08/21/23 (formulary)] Pregabalin [Lyrica] 50 mg PO TID 08/16/23 08/21/23 Tirzepatide [Mounjaro] 2.5 mg SQ WEEKLY 08/16/23 08/21/23 Allergies Allergy/AdvReac Type Severity Reaction Status Date / Time dicyclomine Allergy Anaphylaxis Verified 03/01/24 11:32 "Antibiotic" Allergy "unknown" Uncoded 03/01/24 11:32 Review of Systems ROS Statement: Those systems with pertinent positive or pertinent negative responses have been documented in the HPI. ROS Other: All systems not noted in ROS Statement are negative. Past Medical History Past Medical History: Chest Pain / Angina, Diabetes Mellitus, GERD/Reflux, Hyperlipidemia, Hypertension, Myocardial Infarction ([place]), Osteoarthritis (OA), Syncope Additional Past Medical History / Comment(s): "I'v been cleared from diabetes now."" My AIc is 4.9 now." "I passed out from medications" "That's what my heart doctor said." Migraines. Last Myocardial Infarction Date:: 04/2018 History of Any Multi-Drug Resistant Organisms: MRSA Date of last positivie culture/infection: 2012 MDRO Source:: FOREHEAD, BILAT ARMS AND LEGS FROM SPIDER BITES Past Surgical History: Heart Catheterization, Hernia Repair, Orthopedic Surgery, Tubal Ligation Additional Past Surgical History / Comment(s): LT KNEE SCOPE, BILAT CTR, COL ONOSCOPY, rt shoulder repair and rt arm. Cardiac cath with [place] 2018. Past Anesthesia/Blood Transfusion Reactions: No Reported Reaction, Motion Sickness Additional Past Anesthesia/Blood Transfusion Reaction / Comment(s): No hx of blood transfusion. Past Psychological History: Anxiety, Bipolar Smoking Status: Former smoker Past Alcohol Use History: None Reported Past Drug Use History: None Reported - Past Family History Mother Family Medical History: Deep Vein Thrombosis (DVT) Sister(s) Family Medical History: Cancer General Exam Limitations: no limitations General appearance: alert, in no apparent distress Course Vital Signs 11/17/24 11/17/24 11/17/24 11:28 14:02 16:06 Temperature 98 F Pulse Rate 130 H 93 81 Respiratory 20 16 16 Rate Blood Pressure 125/92 125/90 122/81 O2 Sat by Pulse 99 98 100 Oximetry Medical Decision Making - Medical Decision Making Was pt. sent in by a medical professional or institution ([facility] [place], BELT LOOP MACHINE OPERATOR, urgent care, hospital, or intermediate...) When possible be specific @ -No Did you speak to anyone other than the patient for history (EMS, parent, family, police, friend...)? What history was obtained from this source @ -No Did you review nursing and triage notes (agree or disagree)? Why? @ -I reviewed and agree with nursing and triage notes Were old charts reviewed (outside hosp., previous admission, EMS record, old EKG, old radiological studies, urgent care reports/EKG's, intermediate records)? Report findings @ -No old charts were reviewed Differential Diagnosis (chest pain, altered mental status, abdominal pain women, abdominal pain men, vaginal bleeding, weakness, fever, dyspnea, syncope, headache, dizziness, GI bleed, back pain, seizure, CVA, palpatations, mental health, musculoskeletal)? @ -Differential Abdominal Pain Women: Appendicitis, Cholecystitis, diverticulosis, ischemic bowel, pancreatitis, hepatitis, UTI, gastroenteritis, AAA, incarcerated hernia, bowel obstruction, constipation, inflammatory bowel, hepatitis, peptic ulcer disease, splenic infarction, perforated viscus, vulvitis, ovarian torsion, PID, kidney stone, placenta abruption, this is not meant to be an all-inclusive list EKG interpreted by me (3pts min.). @ -EKG at 1238 shows sinus tachycardia rate 100, [place] 168, QRS 100, QTQTc 34 3400 X-rays interpreted by me (1pt min.). @ -None done CT interpreted by me (1pt min.). @ -None done U/S interpreted by me (1pt. min.). @ -None done What testing was considered but not performed or refused? (CT, X-rays, U/S, labs)? Why? @ -None What meds were considered but not given or refused? Why? @ -None Did you discuss the management of the patient with other professionals (professionals i.e. , RAS, BELT LOOP MACHINE OPERATOR, lab, RT, psych nurse, director social, employment manager, teacher, sba business development officer, rehabilitation case coordinator)? Give summary @ -No Was smoking cessation discussed for >3mins.? @ -No Was critical care preformed (if so, how long)? @ -No Were there social determinants of health that impacted care today? How? (Homelessness, low income, unemployed, alcoholism, drug addiction, transportation, low edu. Level, literacy, decrease access to med. care, [facility], rehab)? @ -No Was there de-escalation of care discussed even if they declined (Discuss DNR or withdrawal of care, Hospice)? DNR status @ -No What co-morbidities impacted this encounter? (DM, HTN, Smoking, COPD, CAD, Cancer, CVA, ARF, Chemo, Hep., AIDS, mental health diagnosis, sleep apnea, morbid obesity)? @ -None Was patient admitted / discharged? Hospital course, mention meds given and route, prescriptions, significant lab abnormalities, going to OR and other pertinent info. @ -Discharge. Patient presented to the emergency department for evaluation of nausea, vomiting and low back pain x 3 days. She states that she has been having difficulty tolerating p.o. intake. Patient underwent laboratory studies revealing no significant leukocytosis; electrolytes within normal limits; initial lactic acid 2.7 repeat after 2 L of fluid within normal limits at 1.4; UA shows trace protein, 4+ ketones, no evidence of infectious process. Following administration of fluids and nausea and pain medication, patient reports improved symptoms and requesting to be discharged. She will be discharged with a Zofran starter pack. Patient is understanding agreeable discharge plan. Patient stable at time of discharge. Case discussed with Dr. Phoenix Undiagnosed new problem with uncertain prognosis? @ -No Drug Therapy requiring intensive monitoring for toxicity (Heparin, Nitro, Insulin, Cardizem)? @ -No Were any procedures done? @ -No Diagnosis/symptom? @ -nausea and vomiting Acute, or Chronic, or Acute on Chronic? @ -acute Uncomplicated (without systemic symptoms) or Complicated (systemic symptoms)? @ -uncomplicated Side effects of treatment? @ -No Exacerbation, Progression, or Severe Exacerbation? @ -No Poses a threat to life or bodily function? How? (Chest pain, [place], [place], pneumonia, PE, COPD, DKA, ARF, appy, cholecystitis, CVA, Diverticulitis, Homicidal, Suicidal, threat to staff... and all critical care pts) @ -No - Lab Data Result diagrams: 03/01/24 12:15 03/01/24 12:15 Lab Results 03/01/24 03/01/24 03/01/24 Range/Units 12:15 12:15 12:15 WBC 10.3 (3.8-10.6) k/uL RBC 5.09 (3.80-5.40) m/uL Hgb 14.6 (11.4-16.0) gm/dL Hct 43.2 (34.0-46.0) % MCV 84.9 (80.0-100.0) fL MCH 28.6 (25.0-35.0) pg MCHC 33.7 (31.0-37.0) g/dL RDW 11.8 (11.5-15.5) % Plt Count 305 (150-450) k/uL MPV 7.2 Neutrophils % 77 % Lymphocytes % 18 % Monocytes % 3 % Eosinophils % 0 % Basophils % 1 % Neutrophils # 8.0 H (1.3-7.7) k/uL Lymphocytes # 1.8 (1.0-4.8) k/uL Monocytes # 0.3 (0-1.0) k/uL Eosinophils # 0.0 (0-0.7) k/uL Basophils # 0.1 (0-0.2) k/uL Sodium 143 (137-145) mmol/L Potassium 4.2 (3.5-5.1) mmol/L Chloride 104 (98-107) mmol/L Carbon Dioxide 20 L (22-30) mmol/L Anion Gap 19 mmol/L BUN 27 H (7-17) mg/dL Creatinine 0.96 (0.52-1.04) mg/dL Est GFR (CKD-EPI)AfAm 77 (>60 ml/min/1.73 sqM) Est GFR (CKD-EPI)NonAf 67 (>60 ml/min/1.73 sqM) Glucose 119 H (74-99) mg/dL Lactic Ac Sepsis Rflx Plasma Lactic Acid [place] (0.7-2.0) mmol/L Calcium 10.3 H (8.4-10.2) mg/dL Total Bilirubin 0.7 (0.2-1.3) mg/dL AST 24 (14-36) U/L ALT 18 (4-34) U/L Alkaline Phosphatase 79 (38-126) U/L Total Protein 8.4 H (6.3-8.2) g/dL Albumin 5.2 H (3.5-5.0) g/dL Amylase 102 (30-110) U/L Lipase 199 (23-300) U/L Urine Color Yellow Urine Appearance Clear (Clear) Urine pH 5.5 (5.0-8.0) Ur Specific [place] 1.028 (1.001-1.035) Urine Protein Trace H (Negative) Urine Glucose (UA) Negative (Negative) Urine Ketones 4+ H (Negative) Urine Blood Negative (Negative) Urine Nitrite Negative (Negative) Urine Bilirubin Negative (Negative) Urine Urobilinogen 2.0 (<2.0) mg/dL Ur Leukocyte Esterase Trace H (Negative) Urine RBC 1 (0-5) /hpf Urine WBC 6 H (0-5) /hpf Ur Squamous Epith Cells 1 (0-4) /hpf Urine Mucus Occasional H (None) /hpf 03/01/24 03/01/24 03/01/24 Range/Units 12:15 12:51 14:57 WBC (3.8-10.6) k/uL RBC (3.80-5.40) m/uL Hgb (11.4-16.0) gm/dL Hct (34.0-46.0) % MCV (80.0-100.0) fL MCH (25.0-35.0) pg MCHC (31.0-37.0) g/dL RDW (11.5-15.5) % Plt Count (150-450) k/uL MPV Neutrophils % % Lymphocytes % % Monocytes % % Eosinophils % % Basophils % % Neutrophils # (1.3-7.7) k/uL Lymphocytes # (1.0-4.8) k/uL Monocytes # (0-1.0) k/uL Eosinophils # (0-0.7) k/uL Basophils # (0-0.2) k/uL Sodium (137-145) mmol/L Potassium (3.5-5.1) mmol/L Chloride (98-107) mmol/L Carbon Dioxide (22-30) mmol/L Anion Gap mmol/L BUN (7-17) mg/dL Creatinine (0.52-1.04) mg/dL Est GFR (CKD-EPI)AfAm (>60 ml/min/1.73 sqM) Est GFR (CKD-EPI)NonAf (>60 ml/min/1.73 sqM) Glucose (74-99) mg/dL Lactic Ac Sepsis Rflx Y Plasma Lactic Acid [place] 2.7 H* 1.4 (0.7-2.0) mmol/L Calcium (8.4-10.2) mg/dL Total Bilirubin (0.2-1.3) mg/dL AST (14-36) U/L ALT (4-34) U/L Alkaline Phosphatase (38-126) U/L Total Protein (6.3-8.2) g/dL Albumin (3.5-5.0) g/dL Amylase (30-110) U/L Lipase (23-300) U/L Urine Color Urine Appearance (Clear) Urine pH (5.0-8.0) Ur Specific [place] (1.001-1.035) Urine Protein (Negative) Urine Glucose (UA) (Negative) Urine Ketones (Negative) Urine Blood (Negative) Urine Nitrite (Negative) Urine Bilirubin (Negative) Urine Urobilinogen (<2.0) mg/dL Ur Leukocyte Esterase (Negative) Urine RBC (0-5) /hpf Urine WBC (0-5) /hpf Ur Squamous Epith Cells (0-4) /hpf Urine Mucus (None) /hpf Disposition Clinical Impression: Nausea and vomiting Disposition: HOME SELF-CARE Condition: Stable Instructions (If sedation given, give patient instructions): Acute Nausea and Vomiting (ED) Additional Instructions: Please follow up with your primary care provider. Return to the emergency department for new or worsening symptoms. Is patient prescribed a controlled substance at d/c from ED?: No Referrals: Carlos Alberto Garza MD [Primary Care Provider] - 1-2 days
[2024-03-01 14:04] VITALS: RESP 16
[2024-03-01] MEDS: ONDANSETRON 4 MG ODT STARTER PACK 2 TAB BTL PO STA (15:35)
[2024-03-01 16:06] VITALS: BP 122/81; PULSE 81
== END 2024-03-01 16:06 | disposition home or self-care (01) ==
LOC: EC 11:16
DX: R11.2 Nausea with vomiting, unspecified (principal); Z87.891 Personal history of nicotine dependence; Z88.1 Allergy status to other antibiotic agents; Z88.8 Allergy status to other drugs, medicaments and biological substances
CPT/HCPCS: 36415; 93005; 80053; 82150; 83605; 83690; 85025; 81001; 99284; 96374; 96375; 96361 ×2; J2405; J1885; S0119